=== PATIENT | male | born 1965 | race Caucasian/White ===

== ENCOUNTER 2023-01-15 03:11 | Emergency (ER) | payer MEDICARE, OTHER ==
[~2023-01-15] VITALS: Ht 175.3 cm; Wt 97.3 kg
[2023-01-15 03:44] VITALS: TEMP 98.5
[2023-01-15 05:18] VITALS: BP 113/63; PULSE 86; RESP 20
[2023-01-15 05:34] LABS: BASOPHILS % (AUTO) 0.5 % (0.0-2.0); EOSINOPHILS % (AUTO) 1.3 % (1.0-6.0); HEMATOCRIT 34.4 % (41-53); HEMOGLOBIN 11.4 g/dL (13.5-17.5); LYMPHOCYTES % (AUTO) 22.5 % (22.0-44.0); MEAN CORPUSCULAR HEMOGLOBIN 29.6 pg (26.0-34.0); MEAN CORPUSCULAR HGB CONC 33.1 G/dL (31.0-37.0); MEAN CORPUSCULAR VOLUME 90 fL (80-100); MONOCYTES # (AUTO) 0.9 K/uL (0.1-1.0); MONOCYTES % (AUTO) 10.1 % (2.0-9.0); NEUTROPHILS % (AUTO) 65.6 % (40.0-70.0); PLATELET COUNT (AUTO) 202 K/uL (150-450); RED BLOOD CELL COUNT(AUTO) 3.84 MIL/uL (4.50-5.90); RED CELL DISTRIBUTION WIDTH 15.1 % (11.5-14.5)
[2023-01-15 05:42] LABS: ANION GAP 8 mmol/L (8-16); CARBON DIOXIDE 27 mmol/L (22-29); CHLORIDE 101 mmol/L (98-107); CREATININE 0.87 mg/dL (0.60-1.30); GLOMERULAR FILTR. RATE CALC > 60 mL/min (>60); GLUCOSE,RANDOM 96 mg/dL (70-110); POTASSIUM 4.5 mmol/L (3.5-5.1); SODIUM SERUM 136 mmol/L (136-145)
[2023-01-15 05:48] LABS: ALANINE AMINOTRANSFERASE 18 U/L (12-78); ALBUMIN 2.8 g/dL (3.4-5.0); ALKALINE PHOSPHATASE 102 U/L (46-116); ASPARTATE AMINOTRANSFERASE 15 U/L (15-37); BILIRUBIN,TOTAL 0.2 mg/dL (0.1-1.0); CREATINE KINASE, TOTAL ONLY 74 U/L (39-308); LIPASE 48 U/L (73-393); TOTAL PROTEIN, SERUM 6.5 g/dL (6.4-8.2)
[2023-01-15 06:11] LABS: B-TYPE NATRIURETIC PEPTIDE 21 pg/mL (0-100)
[2023-01-15] MEDS ORDERED: MAGN296S94 PO (07:33)
== END 2023-01-15 09:35 | disposition short-term general hospital (02) ==
LOC: EMS 03:11
DX: K59.00 Constipation, unspecified (principal); I10 Essential (primary) hypertension; F99 Mental disorder, not otherwise specified
CPT/HCPCS: 71045; 74176; 80053; 82550; 83690; 83880; 84484; 85025; 93005; 99285

== ENCOUNTER 2024-04-26 20:30 | Inpatient (IN) | payer MEDICARE, OTHER ==
[~2024-04-26] VITALS: Ht 177.8 cm; Wt 83.4 kg
[~2024-04-26 20:30] MED LIST: AMLO10TA55 PO; CLOZ100T61 PO; DIVA-112 PO; FERR325T27 PO; FLUP10TA28 PO; GABA-1181 PO; LISI-661 PO; LITH150C PO; LITH300C3 PO; LORA0.5T83 PO; MELA3CAP2 PO; PARO-149 PO
[2024-04-26 21:36] VITALS: PULSE 80; RESP 20; O2SAT 98
[2024-04-26] MEDS ORDERED: SODIUM CHLORIDE 0.9% 100 ML ONE ×2 (21:43→22:03)
[2024-04-26] MEDS ORDERED: IOHEXOL 350 MG/ML 100 ML VIAL ONE (21:43)
[2024-04-26 21:48] LABS: BASOPHILS % (AUTO) 0.1 % (0.0-2.0); EOSINOPHILS % (AUTO) 0.1 % (1.0-6.0); HEMATOCRIT 39.6 % (36-46); HEMOGLOBIN 12.4 g/dL (12.0-16.0); LYMPHOCYTES # (AUTO) 1.8 K/uL (1.0-4.8); MEAN CORPUSCULAR HEMOGLOBIN 28.2 pg (26.0-34.0); MEAN CORPUSCULAR HGB CONC 31.4 G/dL (31.0-37.0); MEAN CORPUSCULAR VOLUME 90 fL (80-100); MONOCYTES # (AUTO) 1.4 K/uL (0.1-1.0); MONOCYTES % (AUTO) 8.4 % (2.0-9.0); NEUTROPHILS # (AUTO) 13.3 K/uL (1.8-7.7); NEUTROPHILS % (AUTO) 80.4 % (40.0-70.0); PLATELET COUNT (AUTO) 191 K/uL (150-450); RED BLOOD CELL COUNT(AUTO) 4.41 MIL/uL (4.00-5.20); RED CELL DISTRIBUTION WIDTH 15.3 % (11.5-14.5); WHITE BLOOD COUNT (AUTO) 16.6 K/uL (4.5-11.0)
[2024-04-26 21:50] LABS: APPEARANCE,URINE HAZY (CLEAR); BILIRUBIN,URINE NEGATIVE (NEGATIVE); COLOR,URINE YELLOW (YELLOW); GLUCOSE, URINE (UA) NEGATIVE (NEGATIVE); KETONES,URINE NEGATIVE (NEGATIVE); LEUKOCYTE ESTERASE ,URINE NEGATIVE (NEGATIVE); NITRATE,URINE NEGATIVE (NEGATIVE); OCCULT BLOOD,URINE NEGATIVE (NEGATIVE); PH,URINE 5.5 (5.0-8.0); PH,URINE DRUG SCREEN 5.5 (5.0-8.0); PROTEIN,URINE 30-70 mg/dL (NEGATIVE); SPECIFIC GRAVITIY, URINE 1.018 (1.003-1.030); UROBILINOGEN,URINE <=1.0 mg/dL (<=1.0)
[2024-04-26 21:54] LABS: CALCIUM, TOTAL 9.2 mg/dL (8.8-10.5); CREATININE 1.31 mg/dL (0.60-1.30); POTASSIUM 4.3 mmol/L (3.5-5.1)
[2024-04-26 21:56] LABS: BACTERIA,URINE Rare /HPF (None Seen); RBC,URINE 0-2 /HPF (0-2); SQUAMOUS EPITHELIAL CELL,UR Few /LPF (None Seen); WBC,URINE 0-2 /HPF (0-5)
[2024-04-26 21:58] LABS: AMPHET/METH SCREEN,URINE NEGATIVE (NEGATIVE); BARBITURATE SCREEN, URINE NEGATIVE (NEGATIVE); BENZODIAZEPINES SCREEN,URINE NEGATIVE (NEGATIVE); CANNABINOID SCREEN,URINE NEGATIVE (NEGATIVE); COCAINE SCREEN,URINE NEGATIVE (NEGATIVE); METHADONE SCREEN, URINE NEGATIVE (NEGATIVE); OPIATE SCREEN,URINE NEGATIVE (NEGATIVE); PHENCYCLIDINE SCREEN,URINE NEGATIVE (NEGATIVE)
[2024-04-26] MEDS ORDERED: FURO40TA6 PO (21:58)
[2024-04-26 22:00] LABS: ALBUMIN 3.1 g/dL (3.4-5.0); BILIRUBIN,TOTAL 0.3 mg/dL (0.1-1.0); PROTHROMBIN TIME 10.3 SEC (9.4-11.6)
[2024-04-26 22:02] LABS: TROPONIN I-HIGH SENSITIVITY Less Than 4 ng/L (<51)
[2024-04-26 22:12] LABS: ABG BASE EXCESS 8.1 mmol/L (-2.0-3.0); ABG CARBOXYHEMOGLOBIN 2.3 % (0.5-1.5); ABG HCO3 30.2 mmol/L (21.0-28.0); ABG METHEMOGLOBIN 0.2 % (0.0-1.5); ABG OXYGEN CONTENT 17.4 mL/dL (15.0-23.0); ABG OXYGEN SATURATION 93.9 % (94.0-98.0); ABG OXYHEMOGLOBIN 91.6 % (94.0-98.0); ABG PCO2 57 mmHg (32.0-45.0); ABG PH 7.384 (7.350-7.450); ABG TOTAL HEMOGLOBIN 13.5 G/dL (12.0-16.0); ALLEN TEST, BLOOD GAS Positive; PO2, ARTERIAL BG 69.6 mmHg (83.0-108.0); SITE, BLOOD GAS LFT RADIAL; SOURCE, BLOOD GAS ARTERIAL; TEMPERATURE, FAHRENHEIT, BG 97.4 FAHREN (96.0-98.6)
[2024-04-26 22:13] LABS: O2 DEVICE,BLOOD GAS VENTILATOR (ROOM AIR); SPONTANEOUS VT, BG 487 ml; VT, ABG 460 ml
[2024-04-26 22:13] LABS: ALCOHOL, URINE DRUG SCREEN NEGATIVE (NEGATIVE)
[2024-04-26] MEDS: 0.9% SODIUM CHLORIDE 10 ML SYRINGE IVP PRN (22:14)
[2024-04-26 22:20] LABS: LACTIC ACID 0.5 mmol/L (0.4-2.0)
[2024-04-26] MEDS: SODIUM CHLORIDE 0.9% 3,400 ML IV ONE (22:22)
[2024-04-26 22:27] LABS: LITHIUM 1.91 mmol/L (0.60-1.20)
[2024-04-26] MEDS ORDERED: ONDANSETRON HCL 4 MG/2 ML VIAL IVP PRN (22:30)
[2024-04-26] MEDS ORDERED: PROPOFOL 1000 MG/ISO-OSM 100 ML ONE (22:31)
[2024-04-26 23:05] LABS: GLUCOSE,RANDOM 103 mg/dL (70-110); LACTATE DEHYDROGENASE 149 U/L (81-234)
[2024-04-26] MEDS: PIPERACILLIN SODIUM/TAZOBACTAM 4.5 GM in DEXTROSE 5%-WATER 100 ML IV ONE (23:23)
[2024-04-26] MEDS: SODIUM CHLORIDE 0.9% 250 ML IV ONE (23:23)
[2024-04-26] MEDS: PROPOFOL 1000 MG/ISO-OSM 100 ML IV PRN (23:42)
[2024-04-26] MEDS: FentaNYL CIT 1000MCG/0.9% NACL 100 ML IV PRN (23:43)
[2024-04-27] VITALS (16 sets, daily range): BP systolic 98–110; BP diastolic 61–68; PULSE 54–69; RESP 20; TEMP 96.6–98.5; O2SAT 91–99
[2024-04-27] MEDS: ETOMIDATE 2 MG/ML 10 ML VIAL IVP ONE (00:08)
[2024-04-27] MEDS: ROCURONIUM BROMIDE 10 MG/ML 5 ML VIAL IVP ONE (00:09)
[2024-04-27] MEDS ORDERED: SODIUM CHLORIDE 0.9% 500 ML IV ONE (00:38)
[2024-04-27] MEDS: NOREPINEPHRINE 8 MG/0.9 % NACL 250 ML IV PRN (01:15)
[2024-04-27 02:18] LABS: CREATININE,URINE RANDOM 77.6 mg/dL (30.0-125.0)
[2024-04-27 02:51] LABS: APPEARANCE,URINE CLEAR (CLEAR); BILIRUBIN,URINE NEGATIVE (NEGATIVE); COLOR,URINE LIGHT YELLOW (YELLOW); GLUCOSE, URINE (UA) NEGATIVE (NEGATIVE); KETONES,URINE NEGATIVE (NEGATIVE); LEUKOCYTE ESTERASE ,URINE NEGATIVE (NEGATIVE); NITRATE,URINE NEGATIVE (NEGATIVE); OCCULT BLOOD,URINE SMALL (NEGATIVE); PH,URINE 6.5 (5.0-8.0); PROTEIN,URINE NEGATIVE (NEGATIVE); SPECIFIC GRAVITIY, URINE 1.036 (1.003-1.030); UROBILINOGEN,URINE <=1.0 mg/dL (<=1.0)
[2024-04-27 03:01] LABS: TROPONIN I-HIGH SENSITIVITY Less Than 4 ng/L (<76)
[2024-04-27 03:12] LABS: BACTERIA,URINE Few /HPF (None Seen); WBC,URINE 0-2 /HPF (0-5)
[2024-04-27] MEDS ORDERED: MELATONIN 3 MG TABLET PO PRN (06:15)
[2024-04-27] MEDS: FentaNYL CIT 1000MCG/0.9% NACL 100 ML IV PRN (06:25)
[2024-04-27 06:43] LABS: BASOPHILS % (AUTO) 0.1 % (0.0-2.0); EOSINOPHILS % (AUTO) 0.2 % (1.0-6.0); HEMATOCRIT 39.2 % (41-53); HEMOGLOBIN 12.3 g/dL (13.5-17.5); LYMPHOCYTES # (AUTO) 2.3 K/uL (1.0-4.8); LYMPHOCYTES % (AUTO) 13.4 % (22.0-44.0); MEAN CORPUSCULAR HGB CONC 31.5 G/dL (31.0-37.0); MEAN CORPUSCULAR VOLUME 89 fL (80-100); MONOCYTES # (AUTO) 1.6 K/uL (0.1-1.0); MONOCYTES % (AUTO) 9.2 % (2.0-9.0); NEUTROPHILS # (AUTO) 13.4 K/uL (1.8-7.7); NEUTROPHILS % (AUTO) 77.1 % (40.0-70.0); PLATELET COUNT (AUTO) 180 K/uL (150-450); RED BLOOD CELL COUNT(AUTO) 4.41 MIL/uL (4.50-5.90); RED CELL DISTRIBUTION WIDTH 14.8 % (11.5-14.5); WHITE BLOOD COUNT (AUTO) 17.3 K/uL (4.5-11.0)
[2024-04-27 06:55] LABS: ANION GAP 2 mmol/L (8-16); CALCIUM, TOTAL 8.9 mg/dL (8.8-10.5); CARBON DIOXIDE 33 mmol/L (22-29); CHLORIDE 102 mmol/L (98-107); CREATININE 1.06 mg/dL (0.60-1.30); GLOMERULAR FILTR. RATE CALC > 60 mL/min (>60); GLUCOSE,RANDOM 118 mg/dL (70-110); POTASSIUM 3.8 mmol/L (3.5-5.1); SODIUM SERUM 137 mmol/L (136-145); UREA NITROGEN, BLOOD 25 mg/dL (7-18)
[2024-04-27] MEDS: PIPERACILLIN SODIUM/TAZOBACTAM 4.5 GM in DEXTROSE 5%-WATER 100 ML IV SCH (07:00)
[2024-04-27] MEDS: CHLORHEXIDINE GLUCONATE 0.12% 15 ML UDCUP ORAL RINSE MM SCH (07:50)
[2024-04-27] MEDS: CloZAPine 100 MG TABLET PO SCH ×2 (07:50→21:00)
[2024-04-27] MEDS: DIVALPROEX SODIUM 500 MG DR TABLET PO SCH (07:50)
[2024-04-27] MEDS: PARoxetine HCL 20 MG TABLET PO SCH (07:51)
[2024-04-27] MEDS ORDERED: [UNRECOGNIZED DRUG - OTHER] PO SCH (09:00)
[2024-04-27] MEDS ORDERED: LITHIUM CARBONATE 300 MG CAPSULE PO SCH (09:00)
[2024-04-27 10:37] LABS: TROPONIN I-HIGH SENSITIVITY Less Than 4 ng/L (<76)
[2024-04-27] MEDS: PERFLUTREN PROTEIN-A MICROSPHERES 0.22 MG/ML 3 ML VIAL IVP ONE (11:32)
[2024-04-27] MEDS: MELATONIN 3 MG TABLET PO SCH (20:55)
[2024-04-27] MEDS: VALPROIC ACID 250 MG/5 ML SOLUTION UDCUP PO SCH (20:55)
[2024-04-27] MEDS: CHLORHEXIDINE GLUCONATE 2% TOWELETTE [2'S/6'S] TP SCH (20:55)
[2024-04-27] MEDS ORDERED: [UNRECOGNIZED DRUG - OTHER] PO SCH (21:00)
[2024-04-27] MEDS: ETHYL ALCOHOL 62% ANTISEPTIC NASAL SANITIZER 0.6 ML AMPUL NASAL SCH (22:26)
[2024-04-28] VITALS (16 sets, daily range): BP systolic 86–138; BP diastolic 59–87; PULSE 52–93; RESP 14–20; TEMP 97.2–99.3; O2SAT 91–98
[2024-04-28] MEDS: HEPARIN SODIUM,PORCINE 5,000 UNITS/ML VIAL SQ SCH (00:05)
[2024-04-28] MEDS: ALBUTEROL SULFATE 2.5 MG/0.5 ML NEB SOLUTION NEB PRN (05:38)
[2024-04-28] MEDS: IPRATROPIUM BROMIDE 0.5 MG/2.5 ML NEB SOLUTION NEB PRN (05:38)
[2024-04-28 05:57] LABS: BASOPHILS % (AUTO) 0.3 % (0.0-2.0); EOSINOPHILS % (AUTO) 0.1 % (1.0-6.0); HEMOGLOBIN 11.8 g/dL (13.5-17.5); LYMPHOCYTES # (AUTO) 1.4 K/uL (1.0-4.8); MEAN CORPUSCULAR HEMOGLOBIN 28.5 pg (26.0-34.0); MEAN CORPUSCULAR HGB CONC 31.1 G/dL (31.0-37.0); MEAN CORPUSCULAR VOLUME 92 fL (80-100); MONOCYTES # (AUTO) 0.9 K/uL (0.1-1.0); MONOCYTES % (AUTO) 9.1 % (2.0-9.0); NEUTROPHILS # (AUTO) 8.1 K/uL (1.8-7.7); NEUTROPHILS % (AUTO) 77.5 % (40.0-70.0); PLATELET COUNT (AUTO) 188 K/uL (150-450); RED BLOOD CELL COUNT(AUTO) 4.15 MIL/uL (4.50-5.90); RED CELL DISTRIBUTION WIDTH 15.3 % (11.5-14.5); WHITE BLOOD COUNT (AUTO) 10.4 K/uL (4.5-11.0)
[2024-04-28 06:10] LABS: LITHIUM 0.82 mmol/L (0.60-1.20)
[2024-04-28 06:13] LABS: CALCIUM, TOTAL 7.1 mg/dL (8.8-10.5); CREATININE 1.44 mg/dL (0.60-1.30); POTASSIUM 3.2 mmol/L (3.5-5.1)
[2024-04-28] MEDS: POTASSIUM CHL 10 MEQ/WATER 50 ML IV SCH (09:56)
[2024-04-28] MEDS: DEXMEDETOMIDINE HCL 400 MCG in SODIUM CHLORIDE 0.9% 96 ML IV PRN (10:13)
[2024-04-28] MEDS ORDERED: DEXTROSE 50%-WATER 25 GM/50 ML SYRINGE IVP PRN (11:45)
[2024-04-28] MEDS ORDERED: SODIUM CHLORIDE 0.9% 500 ML IV ONE (11:46)
[2024-04-28] MEDS: MethylPREDNISolone SOD SUCC 40 MG/ML VIAL IVP ONE (12:22)
[2024-04-28] MEDS: SODIUM CHLORIDE 0.9% 250 ML IV ONE (12:23)
[2024-04-28] MEDS: MIDAZOLAM HCL 2 MG/2 ML VIAL IVP PRN (13:16)
[2024-04-28 14:00] LABS: ABG A-A DIFF O2 605.1 mmHg (10-20.0); ABG BASE EXCESS 5.4 mmol/L (-2.0-3.0); ABG CARBOXYHEMOGLOBIN 1.3 % (0.5-1.5); ABG HCO3 27.8 mmol/L (21.0-28.0); ABG METHEMOGLOBIN 0.3 % (0.0-1.5); ABG OXYGEN CONTENT 15.8 mL/dL (15.0-23.0); ABG OXYGEN SATURATION 85.1 % (94.0-98.0); ABG OXYHEMOGLOBIN 83.7 % (94.0-98.0); ABG PCO2 55 mmHg (35.0-48.0); ABG PH 7.364 (7.350-7.450); ABG TOTAL HEMOGLOBIN 13.4 G/dL (13.5-17.5); ALLEN TEST, BLOOD GAS Positive; O2 DEVICE,BLOOD GAS HI FL CANNULA (ROOM AIR); PO2, ARTERIAL BG 52.7 mmHg (83.0-108.0); SITE, BLOOD GAS RT RADIAL; SOURCE, BLOOD GAS ARTERIAL; TEMPERATURE, FAHRENHEIT, BG 98.6 FAHREN (96.0-98.6)
[2024-04-28] MEDS: IPRATROPIUM BROMIDE 0.5 MG/2.5 ML NEB SOLUTION NEB SCH (14:56)
[2024-04-28] MEDS: HALOPERIDOL LACTATE 5 MG/ML VIAL IVP ONE (16:36)
[2024-04-28] MEDS: LORazepam 2 MG/ML VIAL IVP PRN ×2 (16:50→20:11)
[2024-04-28 17:10] LABS: ABG A-A DIFF O2 551.3 mmHg (10-20.0); ABG BASE EXCESS 3.9 mmol/L (-2.0-3.0); ABG CARBOXYHEMOGLOBIN 0.7 % (0.5-1.5); ABG HCO3 27.2 mmol/L (21.0-28.0); ABG METHEMOGLOBIN 0.3 % (0.0-1.5); ABG OXYGEN CONTENT 18.1 mL/dL (15.0-23.0); ABG OXYGEN SATURATION 97.2 % (94.0-98.0); ABG OXYHEMOGLOBIN 96.2 % (94.0-98.0); ABG PCO2 50 mmHg (35.0-48.0); ABG PH 7.383 (7.350-7.450); ABG TOTAL HEMOGLOBIN 13.3 G/dL (13.5-17.5); ALLEN TEST, BLOOD GAS Positive; O2 DEVICE,BLOOD GAS BIPAP (ROOM AIR); PO2, ARTERIAL BG 111.9 mmHg (83.0-108.0); SITE, BLOOD GAS RT RADIAL; SOURCE, BLOOD GAS ARTERIAL; TEMPERATURE, FAHRENHEIT, BG 98.6 FAHREN (96.0-98.6)
[2024-04-28] MEDS: FAMOTIDINE 20 MG/2 ML VIAL IVP SCH (20:10)
[2024-04-28 20:30] LABS: GLUCOMETER DEV NAME(LOC) ICUN.5; GLUCOSE,POINT OF CARE 125 MG/DL (70-110)
[2024-04-28] MEDS ORDERED: LORazepam 2 MG/ML VIAL IVP PRN (22:15)
[2024-04-28 22:29] LABS: CREATININE,URINE RANDOM 117.6 mg/dL (30.0-125.0)
[2024-04-28] MEDS: RINGERS SOLUTION,LACTATED 1,000 ML IV ONE (23:13)
[2024-04-28 23:51] LABS: GLUCOMETER DEV NAME(LOC) ICU.S6; GLUCOSE,POINT OF CARE 133 MG/DL (70-110)
[2024-04-29] VITALS (14 sets, daily range): BP systolic 99–159; BP diastolic 49–87; PULSE 59–86; RESP 12–23; TEMP 97.8–98.9; O2SAT 3–100
[2024-04-29 07:06] LABS: BASOPHILS % (AUTO) 0.1 % (0.0-2.0); EOSINOPHILS % (AUTO) 0 % (1.0-6.0); HEMATOCRIT 41.2 % (41-53); LYMPHOCYTES # (AUTO) 1.1 K/uL (1.0-4.8); LYMPHOCYTES % (AUTO) 7.8 % (22.0-44.0); MEAN CORPUSCULAR HEMOGLOBIN 28.3 pg (26.0-34.0); MEAN CORPUSCULAR VOLUME 89 fL (80-100); MONOCYTES % (AUTO) 7.1 % (2.0-9.0); PLATELET COUNT (AUTO) 215 K/uL (150-450); RED BLOOD CELL COUNT(AUTO) 4.65 MIL/uL (4.50-5.90); RED CELL DISTRIBUTION WIDTH 14.8 % (11.5-14.5); WHITE BLOOD COUNT (AUTO) 14.1 K/uL (4.5-11.0)
[2024-04-29 07:07] LABS: HEMOGLOBIN 13.2 g/dL (13.5-17.5)
[2024-04-29 07:11] LABS: ANION GAP 6 mmol/L (8-16); CALCIUM, TOTAL 9.2 mg/dL (8.8-10.5); CARBON DIOXIDE 28 mmol/L (22-29); CHLORIDE 101 mmol/L (98-107); CREATININE 0.85 mg/dL (0.60-1.30); GLOMERULAR FILTR. RATE CALC > 60 mL/min (>60); GLUCOSE,RANDOM 92 mg/dL (70-110); POTASSIUM 4.6 mmol/L (3.5-5.1); SODIUM SERUM 135 mmol/L (136-145); UREA NITROGEN, BLOOD 15 mg/dL (7-18)
[2024-04-29 07:21] LABS: GLUCOMETER DEV NAME(LOC) ICU.S6; GLUCOSE,POINT OF CARE 91 MG/DL (70-110)
[2024-04-29] MEDS: HALOPERIDOL LACTATE 5 MG/ML VIAL IM ONE (11:31)
[2024-04-29 17:21] LABS: GLUCOMETER DEV NAME(LOC) ICU.S6; GLUCOSE,POINT OF CARE 85 MG/DL (70-110)
[2024-04-29 19:21] LABS: GLUCOMETER DEV NAME(LOC) ICU.S6; GLUCOSE,POINT OF CARE 90 MG/DL (70-110)
[2024-04-30] VITALS (13 sets, daily range): BP systolic 134–170; BP diastolic 71–87; PULSE 58–85; RESP 15–21; TEMP 97.1–98.5; O2SAT 0–100
[2024-04-30] MEDS: LORazepam 2 MG/ML VIAL IVP PRN (04:28)
[2024-04-30 05:41] LABS: GLUCOMETER DEV NAME(LOC) ICU.S6; GLUCOSE,POINT OF CARE 81 MG/DL (70-110)
[2024-04-30 06:32] LABS: BASOPHILS % (AUTO) 0.2 % (0.0-2.0); EOSINOPHILS % (AUTO) 0.1 % (1.0-6.0); HEMATOCRIT 43.7 % (41-53); HEMOGLOBIN 14.2 g/dL (13.5-17.5); LYMPHOCYTES # (AUTO) 1.7 K/uL (1.0-4.8); LYMPHOCYTES % (AUTO) 14.7 % (22.0-44.0); MEAN CORPUSCULAR HEMOGLOBIN 28.8 pg (26.0-34.0); MEAN CORPUSCULAR HGB CONC 32.5 G/dL (31.0-37.0); MEAN CORPUSCULAR VOLUME 89 fL (80-100); MONOCYTES % (AUTO) 8.8 % (2.0-9.0); NEUTROPHILS # (AUTO) 8.5 K/uL (1.8-7.7); NEUTROPHILS % (AUTO) 76.2 % (40.0-70.0); PLATELET COUNT (AUTO) 204 K/uL (150-450); RED BLOOD CELL COUNT(AUTO) 4.92 MIL/uL (4.50-5.90); RED CELL DISTRIBUTION WIDTH 14.9 % (11.5-14.5); WHITE BLOOD COUNT (AUTO) 11.2 K/uL (4.5-11.0)
[2024-04-30 06:41] LABS: GLUCOMETER DEV NAME(LOC) ICU.S6; GLUCOSE,POINT OF CARE 81 MG/DL (70-110)
[2024-04-30 06:48] LABS: ANION GAP 7 mmol/L (8-16); CALCIUM, TOTAL 9.3 mg/dL (8.8-10.5); CARBON DIOXIDE 30 mmol/L (22-29); CHLORIDE 101 mmol/L (98-107); CREATININE 0.86 mg/dL (0.60-1.30); GLOMERULAR FILTR. RATE CALC > 60 mL/min (>60); GLUCOSE,RANDOM 88 mg/dL (70-110); POTASSIUM 3.7 mmol/L (3.5-5.1); SODIUM SERUM 138 mmol/L (136-145); UREA NITROGEN, BLOOD 15 mg/dL (7-18)
[2024-04-30 11:56] LABS: GLUCOMETER DEV NAME(LOC) ICU.S6; GLUCOSE,POINT OF CARE 89 MG/DL (70-110)
[2024-04-30] MEDS: HydrALAZINE HCL 20 MG/ML VIAL IVP PRN (14:14)
[2024-04-30 23:46] LABS: GLUCOMETER DEV NAME(LOC) ICUN.5; GLUCOSE,POINT OF CARE 123 MG/DL (70-110)
[2024-04-30 23:46] LABS: GLUCOMETER DEV NAME(LOC) ICUN.5; GLUCOSE,POINT OF CARE 103 MG/DL (70-110)
[2024-05-01] VITALS (19 sets, daily range): BP systolic 111–149; BP diastolic 63–78; PULSE 1–107; RESP 16–22; TEMP 97.3–99.8; O2SAT 93–100
[2024-05-01] MEDS ORDERED: SODIUM CHLORIDE 0.9% 250 ML IV ONE (00:35)
[2024-05-01 06:39] LABS: BASOPHILS % (AUTO) 0.2 % (0.0-2.0); EOSINOPHILS % (AUTO) 0.2 % (1.0-6.0); HEMATOCRIT 42.6 % (41-53); HEMOGLOBIN 13.7 g/dL (13.5-17.5); LYMPHOCYTES # (AUTO) 1.7 K/uL (1.0-4.8); LYMPHOCYTES % (AUTO) 16.7 % (22.0-44.0); MEAN CORPUSCULAR HEMOGLOBIN 28.4 pg (26.0-34.0); MEAN CORPUSCULAR HGB CONC 32.2 G/dL (31.0-37.0); MEAN CORPUSCULAR VOLUME 88 fL (80-100); MONOCYTES # (AUTO) 1.2 K/uL (0.1-1.0); MONOCYTES % (AUTO) 11.6 % (2.0-9.0); NEUTROPHILS # (AUTO) 7.2 K/uL (1.8-7.7); NEUTROPHILS % (AUTO) 71.3 % (40.0-70.0); PLATELET COUNT (AUTO) 218 K/uL (150-450); RED BLOOD CELL COUNT(AUTO) 4.82 MIL/uL (4.50-5.90); RED CELL DISTRIBUTION WIDTH 14.9 % (11.5-14.5); WHITE BLOOD COUNT (AUTO) 10.1 K/uL (4.5-11.0)
[2024-05-01 07:05] LABS: GLUCOMETER DEV NAME(LOC) ICU.S6; GLUCOSE,POINT OF CARE 89 MG/DL (70-110)
[2024-05-01 07:07] LABS: ANION GAP 7 mmol/L (8-16); CALCIUM, TOTAL 8.3 mg/dL (8.8-10.5); CARBON DIOXIDE 29 mmol/L (22-29); CHLORIDE 101 mmol/L (98-107); CREATININE 0.87 mg/dL (0.60-1.30); GLOMERULAR FILTR. RATE CALC > 60 mL/min (>60); GLUCOSE,RANDOM 84 mg/dL (70-110); POTASSIUM 3.3 mmol/L (3.5-5.1); SODIUM SERUM 137 mmol/L (136-145); UREA NITROGEN, BLOOD 14 mg/dL (7-18)
[2024-05-01] MEDS: LISINOPRIL 10 MG TABLET PO SCH (09:20)
[2024-05-01] MEDS: AmLODIPine BESYLATE 10 MG TABLET PO SCH (09:20)
[2024-05-01] MEDS ORDERED: POTASSIUM CHL 10 MEQ/WATER 50 ML IV PRN (11:00)
[2024-05-01] MEDS ORDERED: SCOP1PAT12 TD (11:12)
[2024-05-01] MEDS: POTASSIUM CHLORIDE 10% 40 MEQ/30 ML LIQUID UDCUP NG PRN (12:02)
[2024-05-01 12:05] LABS: GLUCOMETER DEV NAME(LOC) ICU.S6; GLUCOSE,POINT OF CARE 100 MG/DL (70-110)
[2024-05-01 18:16] LABS: GLUCOMETER DEV NAME(LOC) 5S.1C; GLUCOSE,POINT OF CARE 106 MG/DL (70-110)
[2024-05-02] VITALS (11 sets, daily range): BP systolic 124–140; BP diastolic 62–90; PULSE 82–94; RESP 16–20; TEMP 98.4–99.5; O2SAT 94–98
[2024-05-02 07:23] LABS: BASOPHILS % (AUTO) 0.2 % (0.0-2.0); EOSINOPHILS % (AUTO) 0.2 % (1.0-6.0); HEMOGLOBIN 14.2 g/dL (13.5-17.5); LYMPHOCYTES # (AUTO) 1.3 K/uL (1.0-4.8); LYMPHOCYTES % (AUTO) 11.4 % (22.0-44.0); MEAN CORPUSCULAR HEMOGLOBIN 29.1 pg (26.0-34.0); MEAN CORPUSCULAR VOLUME 88 fL (80-100); MONOCYTES # (AUTO) 1.2 K/uL (0.1-1.0); MONOCYTES % (AUTO) 10.9 % (2.0-9.0); NEUTROPHILS # (AUTO) 8.5 K/uL (1.8-7.7); NEUTROPHILS % (AUTO) 77.3 % (40.0-70.0); PLATELET COUNT (AUTO) 222 K/uL (150-450); RED BLOOD CELL COUNT(AUTO) 4.88 MIL/uL (4.50-5.90); RED CELL DISTRIBUTION WIDTH 15.2 % (11.5-14.5)
[2024-05-02 08:23] LABS: ANION GAP 12 mmol/L (8-16); CALCIUM, TOTAL 8.8 mg/dL (8.8-10.5); CARBON DIOXIDE 25 mmol/L (22-29); CHLORIDE 103 mmol/L (98-107); CREATININE 0.69 mg/dL (0.60-1.30); GLOMERULAR FILTR. RATE CALC > 60 mL/min (>60); GLUCOSE,RANDOM 98 mg/dL (70-110); POTASSIUM 3.2 mmol/L (3.5-5.1); SODIUM SERUM 140 mmol/L (136-145); UREA NITROGEN, BLOOD 12 mg/dL (7-18)
[2024-05-02 09:01] LABS: GLUCOMETER DEV NAME(LOC) 5S.1C; GLUCOSE,POINT OF CARE 116 MG/DL (70-110)
[2024-05-02 09:01] LABS: GLUCOMETER DEV NAME(LOC) 5S.1C; GLUCOSE,POINT OF CARE 162 MG/DL (70-110)
[2024-05-02] MEDS ORDERED: SODIUM CHLORIDE 0.9% 500 ML IV ONE (18:16)
[2024-05-02 20:01] LABS: GLUCOMETER DEV NAME(LOC) 5S.1C; GLUCOSE,POINT OF CARE 131 MG/DL (70-110)
[2024-05-02 20:01] LABS: GLUCOMETER DEV NAME(LOC) 5N.2C; GLUCOSE,POINT OF CARE 105 MG/DL (70-110)
[2024-05-03] VITALS (9 sets, daily range): BP systolic 111–137; BP diastolic 61–86; PULSE 77–91; RESP 18; TEMP 98–99.3; O2SAT 92–96
[2024-05-03 07:20] LABS: BASOPHILS % (AUTO) 0.2 % (0.0-2.0); EOSINOPHILS % (AUTO) 0.2 % (1.0-6.0); HEMATOCRIT 41.3 % (41-53); HEMOGLOBIN 13.6 g/dL (13.5-17.5); LYMPHOCYTES # (AUTO) 1.4 K/uL (1.0-4.8); LYMPHOCYTES % (AUTO) 15.1 % (22.0-44.0); MEAN CORPUSCULAR HEMOGLOBIN 29.1 pg (26.0-34.0); MEAN CORPUSCULAR HGB CONC 32.9 G/dL (31.0-37.0); MEAN CORPUSCULAR VOLUME 88 fL (80-100); MONOCYTES # (AUTO) 1.1 K/uL (0.1-1.0); MONOCYTES % (AUTO) 12.3 % (2.0-9.0); NEUTROPHILS # (AUTO) 6.7 K/uL (1.8-7.7); NEUTROPHILS % (AUTO) 72.2 % (40.0-70.0); PLATELET COUNT (AUTO) 226 K/uL (150-450); RED BLOOD CELL COUNT(AUTO) 4.67 MIL/uL (4.50-5.90); RED CELL DISTRIBUTION WIDTH 15.4 % (11.5-14.5); WHITE BLOOD COUNT (AUTO) 9.3 K/uL (4.5-11.0)
[2024-05-03 07:56] LABS: ANION GAP 11 mmol/L (8-16); CALCIUM, TOTAL 8.7 mg/dL (8.8-10.5); CARBON DIOXIDE 25 mmol/L (22-29); CHLORIDE 104 mmol/L (98-107); CREATININE 0.71 mg/dL (0.60-1.30); GLOMERULAR FILTR. RATE CALC > 60 mL/min (>60); GLUCOSE,RANDOM 103 mg/dL (70-110); POTASSIUM 3.4 mmol/L (3.5-5.1); SODIUM SERUM 140 mmol/L (136-145); UREA NITROGEN, BLOOD 12 mg/dL (7-18)
[2024-05-03] MEDS: ACETAMINOPHEN 325 MG TABLET PO PRN (10:00)
[2024-05-03 12:31] LABS: GLUCOMETER DEV NAME(LOC) 5N.1D; GLUCOSE,POINT OF CARE 133 MG/DL (70-110)
[2024-05-03 12:31] LABS: GLUCOMETER DEV NAME(LOC) 5N.1D; GLUCOSE,POINT OF CARE 109 MG/DL (70-110)
[2024-05-03 12:31] LABS: GLUCOMETER DEV NAME(LOC) 5N.1D; GLUCOSE,POINT OF CARE 117 MG/DL (70-110)
[2024-05-04] VITALS (13 sets, daily range): BP systolic 119–133; BP diastolic 72–80; PULSE 76–86; RESP 18–20; TEMP 97.6–98.5; O2SAT 92–99
[2024-05-04 06:35] LABS: GLUCOMETER DEV NAME(LOC) 5S.1C; GLUCOSE,POINT OF CARE 100 MG/DL (70-110)
[2024-05-04 20:16] LABS: GLUCOMETER DEV NAME(LOC) 5N.1D; GLUCOSE,POINT OF CARE 100 MG/DL (70-110)
[2024-05-04 20:16] LABS: GLUCOMETER DEV NAME(LOC) 5N.1D; GLUCOSE,POINT OF CARE 102 MG/DL (70-110)
[2024-05-05] VITALS (12 sets, daily range): BP systolic 123–133; BP diastolic 72–93; PULSE 76–89; RESP 18–20; TEMP 97.7–98.1; O2SAT 95–99
[2024-05-05] MEDS ORDERED: SODIUM CHLORIDE 0.9% 250 ML IV ONE ×2 (01:13→08:15)
[2024-05-05 06:38] LABS: ANION GAP 10 mmol/L (8-16); CALCIUM, TOTAL 8.9 mg/dL (8.8-10.5); CARBON DIOXIDE 28 mmol/L (22-29); CHLORIDE 103 mmol/L (98-107); CREATININE 0.71 mg/dL (0.60-1.30); GLOMERULAR FILTR. RATE CALC > 60 mL/min (>60); GLUCOSE,RANDOM 98 mg/dL (70-110); POTASSIUM 3.3 mmol/L (3.5-5.1); SODIUM SERUM 141 mmol/L (136-145); UREA NITROGEN, BLOOD 12 mg/dL (7-18)
[2024-05-05] MEDS: INSULIN LISPRO 100 UNITS/ML SQ PRN (20:18)
[2024-05-06] VITALS (12 sets, daily range): BP systolic 114–142; BP diastolic 67–81; PULSE 75–85; RESP 18–20; TEMP 97.5–98.8; O2SAT 94–98
[2024-05-06] MEDS: NICOTINE 21 MG/24 HOUR PATCH TD SCH (18:13)
[2024-05-07] VITALS (11 sets, daily range): BP systolic 111–133; BP diastolic 70–77; PULSE 78–85; RESP 16–22; TEMP 97.7–98.6; O2SAT 91–95
[2024-05-07] MEDS ORDERED: SODIUM CHLORIDE 0.9% 500 ML IV ONE ×2 (06:23→16:14)
[2024-05-07 06:27] LABS: BASOPHILS % (AUTO) 0.4 % (0.0-2.0); EOSINOPHILS % (AUTO) 0.1 % (1.0-6.0); HEMATOCRIT 41.5 % (41-53); HEMOGLOBIN 13.7 g/dL (13.5-17.5); LYMPHOCYTES # (AUTO) 1.6 K/uL (1.0-4.8); MEAN CORPUSCULAR HGB CONC 32.9 G/dL (31.0-37.0); MEAN CORPUSCULAR VOLUME 88 fL (80-100); MONOCYTES # (AUTO) 0.6 K/uL (0.1-1.0); MONOCYTES % (AUTO) 8.6 % (2.0-9.0); NEUTROPHILS # (AUTO) 4.9 K/uL (1.8-7.7); NEUTROPHILS % (AUTO) 68.9 % (40.0-70.0); PLATELET COUNT (AUTO) 224 K/uL (150-450); RED BLOOD CELL COUNT(AUTO) 4.71 MIL/uL (4.50-5.90); RED CELL DISTRIBUTION WIDTH 15.2 % (11.5-14.5); WHITE BLOOD COUNT (AUTO) 7.1 K/uL (4.5-11.0)
[2024-05-07 06:45] LABS: ANION GAP 7 mmol/L (8-16); CALCIUM, TOTAL 8.9 mg/dL (8.8-10.5); CARBON DIOXIDE 30 mmol/L (22-29); CHLORIDE 104 mmol/L (98-107); CREATININE 0.66 mg/dL (0.60-1.30); GLOMERULAR FILTR. RATE CALC > 60 mL/min (>60); GLUCOSE,RANDOM 93 mg/dL (70-110); POTASSIUM 3.6 mmol/L (3.5-5.1); SODIUM SERUM 141 mmol/L (136-145); UREA NITROGEN, BLOOD 11 mg/dL (7-18)
[2024-05-08] VITALS (9 sets, daily range): BP systolic 113–127; BP diastolic 62–77; PULSE 72–88; RESP 18–20; TEMP 97.6–98.4; O2SAT 93–97
[2024-05-08 01:25] LABS: GLUCOMETER DEV NAME(LOC) 5S.2D; GLUCOSE,POINT OF CARE 124 MG/DL (70-110)
[2024-05-08 01:25] LABS: GLUCOMETER DEV NAME(LOC) 5S.2D; GLUCOSE,POINT OF CARE 117 MG/DL (70-110)
[2024-05-08 03:12] LABS: GLUCOMETER DEV NAME(LOC) 5N.2C; GLUCOSE,POINT OF CARE 115 MG/DL (70-110)
[2024-05-08 03:12] LABS: GLUCOMETER DEV NAME(LOC) 5S.1C; GLUCOSE,POINT OF CARE 97 MG/DL (70-110)
[2024-05-08 03:12] LABS: GLUCOMETER DEV NAME(LOC) 5S.1C; GLUCOSE,POINT OF CARE 87 MG/DL (70-110)
[2024-05-08 03:13] LABS: GLUCOMETER DEV NAME(LOC) 5N.1D; GLUCOSE,POINT OF CARE 102 MG/DL (70-110)
[2024-05-08 03:13] LABS: GLUCOMETER DEV NAME(LOC) 5N.1D; GLUCOSE,POINT OF CARE 139 MG/DL (70-110)
[2024-05-08 03:13] LABS: GLUCOMETER DEV NAME(LOC) 5S.1C; GLUCOSE,POINT OF CARE 128 MG/DL (70-110)
[2024-05-08 03:13] LABS: GLUCOMETER DEV NAME(LOC) 5S.1C; GLUCOSE,POINT OF CARE 104 MG/DL (70-110)
[2024-05-08 03:13] LABS: GLUCOMETER DEV NAME(LOC) 5N.1D; GLUCOSE,POINT OF CARE 184 MG/DL (70-110)
[2024-05-08 03:13] LABS: GLUCOMETER DEV NAME(LOC) 5S.1C; GLUCOSE,POINT OF CARE 117 MG/DL (70-110)
[2024-05-08 03:13] LABS: GLUCOMETER DEV NAME(LOC) 5S.1C; GLUCOSE,POINT OF CARE 105 MG/DL (70-110)
[2024-05-08 03:13] LABS: GLUCOMETER DEV NAME(LOC) 5S.1C; GLUCOSE,POINT OF CARE 114 MG/DL (70-110)
[2024-05-08 03:16] LABS: GLUCOMETER DEV NAME(LOC) 5N.2C; GLUCOSE,POINT OF CARE 128 MG/DL (70-110)
[2024-05-08 14:21] LABS: GLUCOMETER DEV NAME(LOC) 6S.2; GLUCOSE,POINT OF CARE 105 MG/DL (70-110)
[2024-05-08 14:21] LABS: GLUCOMETER DEV NAME(LOC) 6S.2; GLUCOSE,POINT OF CARE 117 MG/DL (70-110)
[2024-05-08 23:41] LABS: GLUCOMETER DEV NAME(LOC) 6S.2; GLUCOSE,POINT OF CARE 137 MG/DL (70-110)
[2024-05-09] VITALS (7 sets, daily range): BP systolic 104–123; BP diastolic 58–79; PULSE 75–87; RESP 16–20; TEMP 97.9–98.6; O2SAT 90–98
[2024-05-09 14:11] LABS: GLUCOMETER DEV NAME(LOC) 6S.1D; GLUCOSE,POINT OF CARE 137 MG/DL (70-110)
[2024-05-09 21:15] LABS: GLUCOMETER DEV NAME(LOC) 6S.1D; GLUCOSE,POINT OF CARE 125 MG/DL (70-110)
[2024-05-10 04:00] VITALS: BP 111/65; PULSE 70; RESP 18; TEMP 98.5; O2SAT 93
[2024-05-10 04:32] VITALS: O2SAT 95
[2024-05-10 08:00] VITALS: PULSE 82; PULSE 86; RESP 16; RESP 18; O2SAT 94
[2024-05-10 08:01] VITALS: BP 113/75; PULSE 90; RESP 19; TEMP 98; O2SAT 91
[2024-05-10 15:07] VITALS: BP 107/69; PULSE 76; RESP 19; TEMP 98.4; O2SAT 97
[2024-05-10 20:42] VITALS: BP 103/63; PULSE 76; RESP 18; TEMP 98.2; O2SAT 95
[2024-05-11 06:02] VITALS: BP 139/62; PULSE 76; RESP 18; TEMP 98.6; O2SAT 97
[2024-05-11 07:21] VITALS: BP 114/75; PULSE 78; RESP 20; TEMP 98.4; O2SAT 96
[2024-05-11 07:45] VITALS: PULSE 90; RESP 20; O2SAT 96
[2024-05-11 11:37] LABS: BASOPHILS % (AUTO) 0.4 % (0.0-2.0); EOSINOPHILS % (AUTO) 0.1 % (1.0-6.0); HEMATOCRIT 42.1 % (41-53); HEMOGLOBIN 13.7 g/dL (13.5-17.5); LYMPHOCYTES # (AUTO) 1.9 K/uL (1.0-4.8); LYMPHOCYTES % (AUTO) 25.2 % (22.0-44.0); MEAN CORPUSCULAR HEMOGLOBIN 28.3 pg (26.0-34.0); MEAN CORPUSCULAR HGB CONC 32.4 G/dL (31.0-37.0); MEAN CORPUSCULAR VOLUME 87 fL (80-100); MONOCYTES # (AUTO) 0.7 K/uL (0.1-1.0); MONOCYTES % (AUTO) 9.3 % (2.0-9.0); NEUTROPHILS # (AUTO) 4.9 K/uL (1.8-7.7); PLATELET COUNT (AUTO) 229 K/uL (150-450); RED BLOOD CELL COUNT(AUTO) 4.82 MIL/uL (4.50-5.90); RED CELL DISTRIBUTION WIDTH 15.1 % (11.5-14.5); WHITE BLOOD COUNT (AUTO) 7.6 K/uL (4.5-11.0)
[2024-05-11 12:01] LABS: ANION GAP 8 mmol/L (8-16); CALCIUM, TOTAL 8.8 mg/dL (8.8-10.5); CARBON DIOXIDE 29 mmol/L (22-29); CHLORIDE 101 mmol/L (98-107); GLOMERULAR FILTR. RATE CALC > 60 mL/min (>60); GLUCOSE,RANDOM 96 mg/dL (70-110); POTASSIUM 4.3 mmol/L (3.5-5.1); SODIUM SERUM 137 mmol/L (136-145); UREA NITROGEN, BLOOD 14 mg/dL (7-18)
[2024-05-11 15:34] VITALS: BP 126/78; PULSE 80; RESP 18; TEMP 98; O2SAT 98
[2024-05-11 20:00] VITALS: BP 118/68; PULSE 82; RESP 20; TEMP 98.1; O2SAT 95
[2024-05-12 05:20] LABS: GLUCOMETER DEV NAME(LOC) 6S.1D; GLUCOSE,POINT OF CARE 105 MG/DL (70-110)
[2024-05-12 08:00] VITALS: BP 132/72; PULSE 86; RESP 18; TEMP 97.4; O2SAT 99
[2024-05-12 14:13] VITALS: PULSE 83; RESP 20; O2SAT 93; O2SAT 95
[2024-05-12 14:28] VITALS: PULSE 86; RESP 20; O2SAT 97
[2024-05-12 16:06] VITALS: BP 134/79; PULSE 88; RESP 19; TEMP 98; O2SAT 97
[2024-05-12 20:23] VITALS: BP 110/54; PULSE 77; RESP 18; TEMP 97.7; O2SAT 95
[2024-05-13 02:11] LABS: GLUCOMETER DEV NAME(LOC) 6S.2; GLUCOSE,POINT OF CARE 110 MG/DL (70-110)
[2024-05-13 05:09] VITALS: BP 131/69; PULSE 84; RESP 18; TEMP 97.5; O2SAT 95
[2024-05-13 08:03] VITALS: BP 122/66; PULSE 81; RESP 18; TEMP 97.9; O2SAT 97
[2024-05-13 08:05] VITALS: PULSE 80; RESP 20; O2SAT 97
[2024-05-13 12:56] LABS: GLUCOMETER DEV NAME(LOC) 6S.1D; GLUCOSE,POINT OF CARE 86 MG/DL (70-110)
[2024-05-13 14:10] VITALS: PULSE 77; RESP 20; O2SAT 98
[2024-05-13 19:23] VITALS: BP 133/85; PULSE 88; RESP 18; TEMP 97.9; O2SAT 98
[2024-05-14 04:59] VITALS: BP 137/82; PULSE 88; RESP 18; TEMP 98.2; O2SAT 97
[2024-05-14 08:18] VITALS: BP 134/84; PULSE 86; RESP 18; TEMP 98.4; O2SAT 97
[2024-05-14 11:50] LABS: GLUCOMETER DEV NAME(LOC) 6S.2; GLUCOSE,POINT OF CARE 110 MG/DL (70-110)
[2024-05-14 12:40] LABS: GLUCOMETER DEV NAME(LOC) 6S.1D; GLUCOSE,POINT OF CARE 102 MG/DL (70-110)
[2024-05-14 15:26] VITALS: BP 105/68; PULSE 82; RESP 14; TEMP 97.8; O2SAT 97
[2024-05-14] MEDS ORDERED: HEPA500018 SQ (15:52)
[2024-05-14] MEDS ORDERED: IPRA0.2S49 NEB (15:53)
[2024-05-14] MEDS ORDERED: NICO-803 TD (15:54)
[2024-05-14] MEDS ORDERED: VALP250C48 PO (15:55)
[2024-05-14] MEDS ORDERED: ACET-2247 PO (15:56)
[2024-05-14] MEDS ORDERED: ALBU2.5V39 NEB (15:57)
== END 2024-05-14 18:00 | DRG 917 ==
LOC: EMS 20:30 → EDH 23:17 → EDSEX 23:17 → ICU 04-27 00:18 → 5N 05-01 13:35 → 5S 05-02 11:42 → 6S 05-07 13:50
PROVIDERS: ADMIT Internal Medicine; ATTEND Internal Medicine
PROC: 0BH17EZ Insertion of Endotracheal Airway into Trachea, Via Natural or Artificial Opening (ICD-10-PCS; principal; 2024-04-26)
PROC: 5A1945Z Respiratory Ventilation, 24-96 Consecutive Hours (ICD-10-PCS; 2024-04-26)
PROC: 5A09357 Assistance with Respiratory Ventilation, Less than 24 Consecutive Hours, Continuous Positive Airway Pressure (ICD-10-PCS; 2024-04-28)
PROC: 5A0955A Assistance with Respiratory Ventilation, Greater than 96 Consecutive Hours, High Flow/Velocity Cannula (ICD-10-PCS; 2024-04-29)
PROC: GZ56ZZZ Individual Psychotherapy, Supportive (ICD-10-PCS; 2024-05-05)
DX: T56.891A Toxic effect of other metals, accidental (unintentional), initial encounter (principal); A41.9 Sepsis, unspecified organism; J69.0 Pneumonitis due to inhalation of food and vomit; J96.01 Acute respiratory failure with hypoxia; R65.21 Severe sepsis with septic shock; G92.8 Other toxic encephalopathy; J90 Pleural effusion, not elsewhere classified; R57.9 Shock, unspecified; N17.9 Acute kidney failure, unspecified; J95.851 Ventilator associated pneumonia; E87.1 Hypo-osmolality and hyponatremia; I10 Essential (primary) hypertension; F25.0 Schizoaffective disorder, bipolar type; T43.595A Adverse effect of other antipsychotics and neuroleptics, initial encounter; R59.1 Generalized enlarged lymph nodes; E04.2 Nontoxic multinodular goiter; E87.6 Hypokalemia; J43.9 Emphysema, unspecified; J98.09 Other diseases of bronchus, not elsewhere classified; G47.00 Insomnia, unspecified; I27.21 Secondary pulmonary arterial hypertension; Y92.89 Other specified places as the place of occurrence of the external cause; Z78.1 Physical restraint status
CPT/HCPCS: 36600; 70496; 70498; 71045; 71250; 74018; 80048; 80053; 80178; 80307; 81001; 82140; 82570; 82805; 82947; 82948; 82962; 83036; 83605; 83615; 83690; 83735; 83930; 83935; 84132; 84145; 84300; 84484; 85025; 85610; 85730; 87040; 87070; 87081; 87481; 92526; 92610; 93005; 93306; 94002; 94003; 94640; 94761; 99291; G0238; J0360; J1630; J1644; J2060; J2250; J2543; J2704; J3010; J3480; J3490; J7040; J7050; J7060; J7120; 36415-L1; 36415-TC; 70450; 70450-TC; J7613